=== PATIENT | female | born 1980 | race African-American/Black ===

== ENCOUNTER 2016-11-28 18:28 | Emergency (ER) | payer BC ==
[~2016-11-28] VITALS: Ht 165.1 cm; Wt 80.0 kg
[2016-11-28] MEDS ORDERED: HYDROCODONE/APAP 7.5/325MG 1 TAB TABLET PO NR (21:45)
[2016-11-28] MEDS ORDERED: KETOROLAC 60MG/2ML VIAL IM ONE (23:15)
[2016-11-29 00:26] VITALS: BP 114/62
== END 2016-11-29 00:30 | disposition home or self-care (01) ==
LOC: ER 19:44
DX: S16.1XXA Strain of muscle, fascia and tendon at neck level, initial encounter (principal); S00.93XA Contusion of unspecified part of head, initial encounter; M54.5 Low back pain; M25.511 Pain in right shoulder; W22.8XXA Striking against or struck by other objects, initial encounter; Y93.89 Activity, other specified; Y99.9 Unspecified external cause status; Y92.89 Other specified places as the place of occurrence of the external cause
CPT/HCPCS: 70450; 72100; 72125; 73030; 81025; 96372; 99284; J1885; Z7610